=== PATIENT | male | born 2000 | race African-American/Black ===

== ENCOUNTER 2022-11-12 12:50 | Emergency (ER) | payer SELFPAY ==
[2022-11-12] MEDS ORDERED: Acetaminophen 500 MG TAB ONE (13:17)
[2022-11-12] MEDS ORDERED: Dexamethasone 20 MG/5 ML VIAL ONE (13:18)
[2022-11-12] MEDS ORDERED: Lidocaine Viscous Sol 2% 15 ml UD Cup ONE (13:27)
== END 2022-11-12 13:50 | disposition home or self-care (01) ==
LOC: NAV ERS 12:50
DX: J02.0 Streptococcal pharyngitis (principal)
CPT/HCPCS: 87430; 87804; 96372; 99283; J1100